=== PATIENT | male | born 1950 | race Asian ===

== ENCOUNTER 2020-12-04 20:23 | Emergency (ER) | payer MEDICARE ==
[2020-12-04 20:32] VITALS: BP 149/68; PULSE 98; TEMP 98.3; BMI 31.4
[2020-12-04] MEDS ORDERED: IBUPROFEN 600 MG TABLET (FP) PO ONE ×2 (22:03→22:05)
[2020-12-04] MEDS ORDERED: LIDOCAINE 5% TOPICAL PATCH TP ONE (22:03)
[2020-12-04] MEDS ORDERED: LIDOCAINE 5% TOPICAL PATCH ONE (22:05)
[2020-12-05] MEDS ORDERED: LIDOCAINE PATCH REMOVAL MC SCH (10:00)
== END 2020-12-05 00:50 | disposition home or self-care (01) ==
LOC: JER 20:23
DX: M79.10 Myalgia, unspecified site (principal)
CPT/HCPCS: 93005; 93010; 99284-25

== ENCOUNTER 2021-01-19 10:15 | Emergency (ER) | payer MEDICARE ==
[2021-01-19 10:22] VITALS: BP 158/83; BMI 32.3
[2021-01-19] MEDS ORDERED: ACETAMINOPHEN INJECTION 100 ML IVPB ONE (10:54)
[2021-01-19] MEDS ORDERED: SODIUM CHLORIDE 0.9% 500 ML INFUS.BAG IV ONE (10:55)
[2021-01-19] MEDS ORDERED: ACETAMINOPHEN 1000 MG/100 ML VIAL (NON FORMULARY) IVPB ONE (10:55)
[2021-01-19 11:25] LABS: BASO % 0.7 % (0-2.0); EOS % 1.4 % (0-4.5); HEMATOCRIT 42.7 % (35.4-49); HEMOGLOBIN 14.2 GM/dL (11.7-16.9); LYMPH % 7.7 % (8-40); MCH 27.5 pg (25.7-33.7); MCHC 33.2 g/dl (32.0-35.9); MEAN CELL VOLUME 82.9 fl (80-96); MEAN PLT VOLUME 8.1 fl (7.5-11.1); MONO % 9.1 % (3.8-10.2); NEUT % 81.1 % (42.8-82.8); PLATELET COUNT 191 K/MM3 (134-434); RBC 5.16 M/mm3 (4.00-5.60); RDW 14.7 % (11.9-15.9); WHITE BLOOD COUNT 5.1 K/mm3 (4.0-10.0)
[2021-01-19 11:40] LABS: POTASSIUM 4.1 mmol/L (3.5-5.1)
[2021-01-19 11:42] LABS: CALCIUM 8.3 mg/dL (8.5-10.1)
[2021-01-19 11:43] LABS: ALBUMIN 3.5 g/dl (3.4-5.0)
[2021-01-19 11:46] LABS: CREATININE 0.9 mg/dL (0.55-1.3)
[2021-01-19 11:47] LABS: BILIRUBIN,TOTAL 0.6 mg/dL (0.2-1); TOT PROT 7.1 g/dl (6.4-8.2)
[2021-01-19 11:52] LABS: BLOOD UREA NITROGEN 8.5 mg/dL (7-18)
[2021-01-19 12:34] VITALS: PULSE 92; TEMP 100
== END 2021-01-19 12:55 | disposition home or self-care (01) ==
LOC: JER 10:15
PROC: 3E033NZ Introduction of Analgesics, Hypnotics, Sedatives into Peripheral Vein, Percutaneous Approach (ICD-10-PCS; principal; 2021-01-19)
DX: M79.10 Myalgia, unspecified site (principal)
CPT/HCPCS: 36415; 80053; 85025; 96374; 99284-25; J0131

== ENCOUNTER 2021-05-05 09:23 | Emergency (ER) | payer MEDICARE ==
[2021-05-05 09:33] VITALS: BP 143/84; PULSE 83; TEMP 97.5; BMI 31.1
[2021-05-05] MEDS ORDERED: KETOROLAC TROMETHAMINE 30 MG/1 ML VIAL IM ONE (09:46)
[2021-05-05] MEDS ORDERED: KETOROLAC TROMETHAMINE 30 MG/1 ML VIAL ONE (09:50)
[2021-05-05 10:30] LABS: URINE APPEARANCE CLEAR; URINE BILIRUBIN NEGATIVE (NEGATIVE); URINE COLOR YELLOW; URINE GLUCOSE (UA) NEGATIVE (NEGATIVE); URINE KETONE NEGATIVE (NEGATIVE); URINE LEUK ESTERASE NEGATIVE (NEGATIVE); URINE NITRITE NEGATIVE (NEGATIVE); URINE PROTEIN NEGATIVE (NEGATIVE); URINE UROBILINOGEN 0.2 mg/dL (0.2-1.0)
== END 2021-05-05 10:50 | disposition home or self-care (01) ==
LOC: JERFT 09:23
PROC: 3E0233Z Introduction of Anti-inflammatory into Muscle, Percutaneous Approach (ICD-10-PCS; principal; 2021-05-05)
DX: M54.5 Low back pain (principal)
CPT/HCPCS: 81003; 87086; 96372; 99284-25

== ENCOUNTER 2021-12-05 03:10 | Inpatient (IN) | payer MEDICARE, OTHER ==
[2021-12-05 03:49] LABS: BASO % 0.4 % (0-2.0); EOS % 1.7 % (0-4.5); HEMATOCRIT 40.9 % (35.4-49); HEMOGLOBIN 13.7 GM/dL (11.7-16.9); LYMPH % 5.8 % (8-40); MCH 27.7 pg (25.7-33.7); MCHC 33.5 g/dl (32.0-35.9); MEAN CELL VOLUME 82.7 fl (80-96); MEAN PLT VOLUME 8.6 fl (7.5-11.1); MONO % 5.2 % (3.8-10.2); NEUT % 86.9 % (42.8-82.8); PLATELET COUNT 174 10^3/uL (134-434); RBC 4.94 M/mm3 (4.00-5.60); VENOUS BASE EXCESS -3.3 mmol/L (-2-2); VENOUS O2 SATURATION 70.9 % (70-80); VENOUS PCO2 33.3 mmHg (38-52); VENOUS PH 7.408 (7.310-7.410)
[2021-12-05 04:00] LABS: INR 1.28 (0.83-1.09); PROTHROMBIN TIME (PATIENT) 14.8 SEC (9.7-13.0)
[2021-12-05 04:03] LABS: ACTIVATED PTT 24.1 SECONDS (25.2-36.5)
[2021-12-05 04:11] LABS: ALBUMIN 3.8 g/dl (3.4-5.0); CALCIUM 8.5 mg/dL (8.5-10.1)
[2021-12-05 04:12] LABS: BLOOD UREA NITROGEN 10.4 mg/dL (7-18)
[2021-12-05 04:14] LABS: CREATININE 1.2 mg/dL (0.55-1.3)
[2021-12-05 04:16] LABS: BILIRUBIN,TOTAL 0.6 mg/dL (0.2-1)
[2021-12-05] MEDS ORDERED: CEFTRIAXONE 1 GM in DEXTROSE 5%-WATER - 50 ML IVPB ONE (04:34)
[2021-12-05] MEDS ORDERED: SODIUM CHLORIDE 0.9% 500 ML INFUS.BAG IV ONE (04:39)
[2021-12-05] MEDS ORDERED: CEFTRIAXONE 1 GM/50 ML BAG ONE (04:40)
[2021-12-05 04:57] LABS: EPI CELLS 1 /uL (0-25.1); HYALINE CASTS 0 /uL (0-3.1); URINE APPEARANCE CLOUDY; URINE BACTERIA 109 /uL (0-1359); URINE BILIRUBIN NEGATIVE (NEGATIVE); URINE COLOR DK YELLOW; URINE GLUCOSE (UA) NEGATIVE (NEGATIVE); URINE KETONE TRACE (NEGATIVE); URINE LEUK ESTERASE 2+ (NEGATIVE); URINE NITRITE NEGATIVE (NEGATIVE); URINE PROTEIN 2+ (NEGATIVE); URINE RBC 523 /uL (0-23.9); URINE UROBILINOGEN 0.2 mg/dL (0.2-1.0); URINE WBC 1256 /uL (0-25.8)
[2021-12-05] MEDS: ACETAMINOPHEN 1000 MG/100 ML BAG IVPB PRN ×2 (11:33→21:00)
[2021-12-05] MEDS ORDERED: MEROPENEM 1 GM VIAL (RESTRICTED TO ID) IVPB ONE (17:50)
[2021-12-05] MEDS: MEROPENEM 1 GM in DEXTROSE 5%-WATER 100 ML IVPB SCH (18:08)
[2021-12-05 18:45] LABS: BASO % 0.2 % (0-2.0); EOS % 0.5 % (0-4.5); HEMATOCRIT 40.3 % (35.4-49); HEMOGLOBIN 13.2 GM/dL (11.7-16.9); LYMPH % 10.1 % (8-40); MCH 26.9 pg (25.7-33.7); MCHC 32.7 g/dl (32.0-35.9); MEAN CELL VOLUME 82.1 fl (80-96); MEAN PLT VOLUME 8.8 fl (7.5-11.1); MONO % 8.4 % (3.8-10.2); NEUT % 80.8 % (42.8-82.8); PLATELET COUNT 187 10^3/uL (134-434); RBC 4.91 M/mm3 (4.00-5.60); RDW 14.9 % (11.9-15.9)
[2021-12-06] MEDS ORDERED: MEROPENEM 1 GM VIAL (RESTRICTED TO ID) IVPB ONE ×3 (02:30→17:12)
[2021-12-06] MEDS ORDERED: DEXTROSE 5%-WATER 100 ML IVPB ONE ×3 (02:31→17:12)
[2021-12-06] MEDS: MEROPENEM 1 GM in DEXTROSE 5%-WATER 100 ML IVPB SCH ×3 (03:00→17:36)
[2021-12-06 08:29] LABS: BASO % 0.4 % (0-2.0); EOS % 0.9 % (0-4.5); HEMATOCRIT 38.5 % (35.4-49); HEMOGLOBIN 12.7 GM/dL (11.7-16.9); LYMPH % 13.8 % (8-40); MCH 27.4 pg (25.7-33.7); MEAN PLT VOLUME 9.2 fl (7.5-11.1); MONO % 11.4 % (3.8-10.2); NEUT % 73.5 % (42.8-82.8); PLATELET COUNT 167 10^3/uL (134-434); RBC 4.64 M/mm3 (4.00-5.60); RDW 15.2 % (11.9-15.9); WHITE BLOOD COUNT 6.9 K/mm3 (4.0-10.0)
[2021-12-06 08:33] LABS: CALCIUM 8.3 mg/dL (8.5-10.1)
[2021-12-06 08:34] LABS: ALBUMIN 3.3 g/dl (3.4-5.0); BLOOD UREA NITROGEN 13.3 mg/dL (7-18)
[2021-12-06 08:39] LABS: BILIRUBIN,TOTAL 0.7 mg/dL (0.2-1); TOT PROT 6.6 g/dl (6.4-8.2)
[2021-12-06 08:42] VITALS: BMI 29.2
[2021-12-07] MEDS ORDERED: DEXTROSE 5%-WATER 100 ML IVPB ONE ×2 (01:06→09:54)
[2021-12-07] MEDS ORDERED: MEROPENEM 1 GM VIAL (RESTRICTED TO ID) IVPB ONE ×2 (01:06→09:54)
[2021-12-07] MEDS: MEROPENEM 1 GM in DEXTROSE 5%-WATER 100 ML IVPB SCH ×2 (01:18→10:08)
[2021-12-07] MEDS ORDERED: ERTAPENEM SODIUM 1 GM VIAL ONE (16:27)
[2021-12-07] MEDS ORDERED: SODIUM CHLORIDE 50 ML IVPB ONE (16:27)
[2021-12-07] MEDS: ERTAPENEM SODIUM 1 GM in SODIUM CHLORIDE 50 ML IVPB SCH (16:34)
[2021-12-08] MEDS ORDERED: ERTAPENEM SODIUM 1 GM VIAL ONE (09:43)
[2021-12-08] MEDS ORDERED: SODIUM CHLORIDE 50 ML IVPB ONE (09:44)
[2021-12-08] MEDS: ERTAPENEM SODIUM 1 GM in SODIUM CHLORIDE 50 ML IVPB SCH (09:46)
[2021-12-08] MEDS ORDERED: MAG HYDROX/AL HYDROX/SIMETH 30 ML UNIT-DOSE CUP PO PRN (15:32)
[2021-12-08] MEDS: PANTOPRAZOLE 40 MG TABLET PO SCH (16:00)
[2021-12-08] MEDS ORDERED: TAMSULOSIN HCL 0.4 MG CAP PO ONE (17:53)
[2021-12-08] MEDS ORDERED: amLODIPine BESYLATE 5 MG TABLET (FP) PO ONE (17:53)
[2021-12-09] MEDS ORDERED: ERTAPENEM SODIUM 1 GM VIAL ONE (09:43)
[2021-12-09] MEDS ORDERED: SODIUM CHLORIDE 50 ML IVPB ONE (09:44)
[2021-12-09] MEDS: amLODIPine BESYLATE 5 MG TABLET (FP) PO SCH (09:49)
[2021-12-09] MEDS: ERTAPENEM SODIUM 1 GM in SODIUM CHLORIDE 50 ML IVPB SCH (09:49)
[2021-12-09] MEDS: PANTOPRAZOLE 40 MG TABLET PO SCH (09:49)
[2021-12-09] MEDS: TAMSULOSIN HCL 0.4 MG CAP PO SCH (09:49)
[2021-12-09] MEDS: ACETAMINOPHEN 325 MG TABLET (FP) PO PRN (13:23)
[2021-12-10] MEDS: ACETAMINOPHEN 325 MG TABLET (FP) PO PRN (03:07)
[2021-12-10] MEDS ORDERED: ERTAPENEM SODIUM 1 GM VIAL ONE (08:52)
[2021-12-10] MEDS ORDERED: SODIUM CHLORIDE 50 ML IVPB ONE (08:52)
[2021-12-10] MEDS: amLODIPine BESYLATE 5 MG TABLET (FP) PO SCH (09:32)
[2021-12-10] MEDS: ERTAPENEM SODIUM 1 GM in SODIUM CHLORIDE 50 ML IVPB SCH (09:32)
[2021-12-10] MEDS: PANTOPRAZOLE 40 MG TABLET PO SCH (09:32)
[2021-12-10] MEDS: TAMSULOSIN HCL 0.4 MG CAP PO SCH (09:32)
[2021-12-10 10:19] VITALS: BP 138/75; PULSE 84; TEMP 98.5
== END 2021-12-10 19:01 | disposition home or self-care (01) | DRG 699 ==
LOC: JER 03:10 → JERBED 06:09 → J7W 22:24
PROVIDERS: ADMIT Internal Medicine; ATTEND Family Medicine
PROC: 05HB33Z Insertion of Infusion Device into Right Basilic Vein, Percutaneous Approach (ICD-10-PCS; principal; 2021-12-10)
PROC: B51MZZA Fluoroscopy of Right Upper Extremity Veins, Guidance (ICD-10-PCS; 2021-12-10)
DX: N99.89 Other postprocedural complications and disorders of genitourinary system (principal); N39.0 Urinary tract infection, site not specified; Z16.12 Extended spectrum beta lactamase (ESBL) resistance; N41.9 Inflammatory disease of prostate, unspecified; R50.9 Fever, unspecified; B96.20 Unspecified Escherichia coli [E. coli] as the cause of diseases classified elsewhere; I10 Essential (primary) hypertension; K21.9 Gastro-esophageal reflux disease without esophagitis; Y83.9 Surgical procedure, unspecified as the cause of abnormal reaction of the patient, or of later complication, without mention of misadventure at the time of the procedure
CPT/HCPCS: 36415; 36569; 71045-TC-FY; 74177-TC; 80053; 81003; 82272; 82375; 82550; 82553; 82803; 83605; 84153; 84484; 85025; 85610; 85730; 86850; 86900; 86901; 87040; 87086; 87186; 93005; 93010; 99285-25; C9803; J0131; U0003; U0005

== ENCOUNTER 2021-12-11 12:22 | Day surgery (SDC) | payer OTHER ==
[2021-12-11] MEDS ORDERED: ERTAPENEM SODIUM 1 GM in SODIUM CHLORIDE 50 ML IVPB ONE (12:45)
[2021-12-11] MEDS ORDERED: SODIUM CHLORIDE 50 ML IVPB ONE (12:47)
[2021-12-11] MEDS ORDERED: ERTAPENEM SODIUM 1 GM VIAL ONE (12:47)
[2021-12-11 13:07] VITALS: BP 141/73; PULSE 83; TEMP 99
== END 2021-12-11 13:50 | disposition home or self-care (01) ==
LOC: JINFUSION 12:22 → J7W 12:40 → JINFUSION 13:50
PROVIDERS: ATTEND Internal Medicine
DX: N39.0 Urinary tract infection, site not specified (principal); B96.20 Unspecified Escherichia coli [E. coli] as the cause of diseases classified elsewhere
CPT/HCPCS: 96413

== ENCOUNTER 2022-05-02 14:39 | Emergency (ER) | payer OTHER ==
[2022-05-02 14:53] VITALS: BP 138/70; PULSE 79; TEMP 98.5; BMI 28.8
[2022-05-02] MEDS ORDERED: SODIUM CHLORIDE 1,000 ML IV STA (15:47)
[2022-05-02] MEDS ORDERED: ACETAMINOPHEN 1000 MG/100 ML BAG IVPB ONE (15:48)
[2022-05-02] MEDS ORDERED: ACETAMINOPHEN INJECTION 100 ML IVPB ONE (15:59)
[2022-05-02 17:35] LABS: BASO % 0.6 % (0-2.0); EOS % 2.8 % (0-4.5); HEMATOCRIT 42.1 % (35.4-49); HEMOGLOBIN 14.1 GM/dL (11.7-16.9); LYMPH % 22.4 % (8-40); MCH 27.8 pg (25.7-33.7); MCHC 33.5 g/dl (32.0-35.9); MEAN PLT VOLUME 9.4 fl (7.5-11.1); MONO % 8.2 % (3.8-10.2); PLATELET COUNT 278 10^3/uL (134-434); RBC 5.08 M/mm3 (4.00-5.60); RDW 14.6 % (11.9-15.9); WHITE BLOOD COUNT 6.3 K/mm3 (4.0-10.0)
[2022-05-02 17:44] LABS: URINE APPEARANCE CLEAR; URINE BILIRUBIN NEGATIVE (NEGATIVE); URINE COLOR YELLOW; URINE GLUCOSE (UA) NEGATIVE (NEGATIVE); URINE KETONE NEGATIVE (NEGATIVE); URINE LEUK ESTERASE NEGATIVE (NEGATIVE); URINE NITRITE NEGATIVE (NEGATIVE); URINE PROTEIN NEGATIVE (NEGATIVE); URINE UROBILINOGEN 0.2 mg/dL (0.2-1.0)
[2022-05-02 17:52] LABS: BLOOD UREA NITROGEN 9.6 mg/dL (7-18); CALCIUM 9.6 mg/dL (8.5-10.1)
[2022-05-02 17:55] LABS: CREATININE 0.9 mg/dL (0.55-1.3)
[2022-05-02 17:58] LABS: BILIRUBIN,TOTAL 0.4 mg/dL (0.2-1); TOT PROT 7.7 g/dl (6.4-8.2)
== END 2022-05-02 18:52 | disposition home or self-care (01) ==
LOC: JERFT 14:39
PROC: 3E0333Z Introduction of Anti-inflammatory into Peripheral Vein, Percutaneous Approach (ICD-10-PCS; principal; 2022-05-02)
PROC: 3E0337Z Introduction of Electrolytic and Water Balance Substance into Peripheral Vein, Percutaneous Approach (ICD-10-PCS; 2022-05-02)
DX: R10.9 Unspecified abdominal pain (principal)
CPT/HCPCS: 36415; 74176-TC; 80053; 81003; 85025; 96361; 96374; 99284-25

== ENCOUNTER 2022-11-16 19:19 | Emergency (ER) | payer OTHER ==
[2022-11-16 19:42] VITALS: BP 139/67; PULSE 87; RESP 18; TEMP 99.4; BMI 30.4
[2022-11-16 21:16] LABS: BASO % 0.5 % (0-2.0); EOS % 3.6 % (0-4.5); HEMATOCRIT 42.1 % (35.4-49); LYMPH % 11.6 % (8-40); MCH 27.7 pg (25.7-33.7); MCHC 33.2 g/dl (32.0-35.9); MEAN CELL VOLUME 83.5 fl (80-96); MEAN PLT VOLUME 8.8 fl (7.5-11.1); MONO % 8.5 % (3.8-10.2); NEUT % 75.8 % (42.8-82.8); PLATELET COUNT 212 10^3/uL (134-434); RBC 5.04 M/mm3 (4.00-5.60); RDW 14.4 % (11.9-15.9); WHITE BLOOD COUNT 5.4 K/mm3 (4.0-10.0)
[2022-11-16 21:52] LABS: CALCIUM 9.1 mg/dL (8.5-10.1)
[2022-11-16 21:53] LABS: BLOOD UREA NITROGEN 7.8 mg/dL (7-18)
[2022-11-16 21:55] LABS: CREATININE 1.1 mg/dL (0.55-1.3)
[2022-11-16 21:57] LABS: BILIRUBIN,TOTAL 0.4 mg/dL (0.2-1); TOT PROT 7.4 g/dl (6.4-8.2)
== END 2022-11-16 23:32 | disposition home or self-care (01) ==
LOC: JER 19:19
DX: R05.1 Acute cough (principal)
CPT/HCPCS: 0241U-QW; 36415; 71046-TC-FY; 80053; 84484; 85025; 93005; 93010; 99285-25

== ENCOUNTER 2023-01-25 04:37 | Emergency (ER) | payer OTHER ==
[2023-01-25 04:43] VITALS: BP 147/82; PULSE 72; RESP 17; TEMP 97.9; BMI 29.6
[2023-01-25] MEDS ORDERED: KETOROLAC TROMETHAMINE 15 MG/ML VIAL IM ONE (05:37)
[2023-01-25] MEDS ORDERED: LIDOCAINE 5% TOPICAL PATCH TP ONE (05:37)
[2023-01-25] MEDS ORDERED: KETOROLAC TROMETHAMINE 15 MG/ML VIAL ONE (05:39)
[2023-01-25] MEDS ORDERED: LIDOCAINE 5% TOPICAL PATCH ONE (05:39)
[2023-01-25] MEDS ORDERED: LIDOCAINE PATCH REMOVAL MC SCH (22:00)
== END 2023-01-25 06:49 | disposition home or self-care (01) ==
LOC: JER 04:37
PROC: 3E0233Z Introduction of Anti-inflammatory into Muscle, Percutaneous Approach (ICD-10-PCS; principal; 2023-01-25)
DX: M54.2 Cervicalgia (principal)
CPT/HCPCS: 96372; 99284-25

== ENCOUNTER 2023-01-26 09:43 | Emergency (ER) | payer OTHER ==
[2023-01-26 09:46] VITALS: BP 143/80; PULSE 84; RESP 18; TEMP 97; BMI 28.8
[2023-01-26] MEDS ORDERED: LIDOCAINE 5% TOPICAL PATCH TP ONE (11:29)
[2023-01-26] MEDS ORDERED: METHOCARBAMOL 500 MG TABLET PO ONE (11:29)
[2023-01-26] MEDS ORDERED: KETOROLAC TROMETHAMINE 30 MG/1 ML VIAL IM ONE (11:29)
[2023-01-26] MEDS ORDERED: KETOROLAC TROMETHAMINE 30 MG/1 ML VIAL ONE (11:32)
[2023-01-26] MEDS ORDERED: LIDOCAINE 5% TOPICAL PATCH ONE (11:32)
[2023-01-26] MEDS ORDERED: METHOCARBAMOL 500 MG TABLET ONE (11:32)
[2023-01-26] MEDS ORDERED: LIDOCAINE PATCH REMOVAL MC ONE (22:00)
== END 2023-01-26 12:33 | disposition home or self-care (01) ==
LOC: JERFT 09:43 → JER 09:43 → JERFT 12:33
PROC: 3E0233Z Introduction of Anti-inflammatory into Muscle, Percutaneous Approach (ICD-10-PCS; principal; 2023-01-26)
DX: S16.1XXA Strain of muscle, fascia and tendon at neck level, initial encounter (principal); M54.2 Cervicalgia; X58.XXXA Exposure to other specified factors, initial encounter
CPT/HCPCS: 96372; 99284-25

== ENCOUNTER 2023-06-08 22:22 | Observation (INO) | payer OTHER ==
[2023-06-08] MEDS ORDERED: MAG HYDROX/AL HYDROX/SIMETH 30 ML UNIT-DOSE CUP PO ONE (22:46)
[2023-06-08] MEDS ORDERED: FAMOTIDINE 20 MG/50 ML IVPB 20 MG/50 ML MG IVPB ONE ×2 (22:46→23:09)
[2023-06-08] MEDS ORDERED: MAG HYDROX/AL HYDROX/SIMETH 30 ML UNIT-DOSE CUP ONE (23:09)
[2023-06-08 23:12] LABS: BASO % 0.6 % (0-2.0); EOS % 3.4 % (0-4.5); HEMATOCRIT 37.1 % (35.4-49); HEMOGLOBIN 12.8 GM/dL (11.7-16.9); LYMPH % 23.7 % (8-40); MCH 28.4 pg (25.7-33.7); MCHC 34.4 g/dl (32.0-35.9); MEAN CELL VOLUME 82.6 fl (80-96); MEAN PLT VOLUME 8.1 fl (7.5-11.1); MONO % 6.7 % (3.8-10.2); NEUT % 65.6 % (42.8-82.8); PLATELET COUNT 215 10^3/uL (134-434); RBC 4.49 M/mm3 (4.00-5.60); RDW 14.4 % (11.9-15.9); WHITE BLOOD COUNT 6.1 K/mm3 (4.0-10.0)
[2023-06-08 23:31] LABS: POTASSIUM 4.1 mmol/L (3.5-5.1)
[2023-06-08 23:32] LABS: CALCIUM 8.9 mg/dL (8.5-10.1)
[2023-06-08 23:33] LABS: ALBUMIN 3.4 g/dl (3.4-5.0); BLOOD UREA NITROGEN 14.3 mg/dL (7-18)
[2023-06-08 23:36] LABS: CREATININE 0.8 mg/dL (0.55-1.3)
[2023-06-08 23:38] LABS: BILIRUBIN,TOTAL 0.3 mg/dL (0.2-1); TOT PROT 6.7 g/dl (6.4-8.2)
[2023-06-09 00:52] LABS: PH,URINE 6.5 (5.0-8.0); URINE APPEARANCE CLEAR; URINE BILIRUBIN NEGATIVE (NEGATIVE); URINE COLOR YELLOW; URINE GLUCOSE (UA) NEGATIVE (NEGATIVE); URINE KETONE NEGATIVE (NEGATIVE); URINE LEUK ESTERASE NEGATIVE (NEGATIVE); URINE NITRITE NEGATIVE (NEGATIVE); URINE PROTEIN NEGATIVE (NEGATIVE); URINE UROBILINOGEN 0.2 mg/dL (0.2-1.0)
[2023-06-09] MEDS ORDERED: ASPIRIN 81 MG CHEWABLE TABLETS PO ONE (01:53)
[2023-06-09] MEDS ORDERED: ASPIRIN 81 MG CHEWABLE TABLETS ONE (02:04)
[2023-06-09] MEDS ORDERED: ACETAMINOPHEN 325 MG TABLET (FP) PO PRN (02:31)
[2023-06-09] MEDS ORDERED: SIMETHICONE 80 MG TAB.CHEW (FP) PO PRN (05:14)
[2023-06-09] MEDS ORDERED: TAMSULOSIN HCL 0.4 MG CAP PO SCH (08:30)
[2023-06-09] MEDS ORDERED: amLODIPine BESYLATE 5 MG TABLET (FP) ONE (08:42)
[2023-06-09] MEDS ORDERED: PANTOPRAZOLE 40 MG TABLET PO ONE (08:42)
[2023-06-09] MEDS ORDERED: TAMSULOSIN HCL 0.4 MG CAP ONE (08:43)
[2023-06-09 08:49] LABS: BASO % 0.7 % (0-2.0); EOS % 4.5 % (0-4.5); HEMATOCRIT 37.4 % (35.4-49); HEMOGLOBIN 13.2 GM/dL (11.7-16.9); LYMPH % 27.1 % (8-40); MCH 28.9 pg (25.7-33.7); MCHC 35.3 g/dl (32.0-35.9); MEAN PLT VOLUME 8.3 fl (7.5-11.1); NEUT % 59.7 % (42.8-82.8); PLATELET COUNT 199 10^3/uL (134-434); RBC 4.56 M/mm3 (4.00-5.60); RDW 14.7 % (11.9-15.9); WHITE BLOOD COUNT 3.8 K/mm3 (4.0-10.0)
[2023-06-09 08:56] LABS: POTASSIUM 4.3 mmol/L (3.5-5.1)
[2023-06-09 08:58] LABS: CALCIUM 8.6 mg/dL (8.5-10.1)
[2023-06-09 09:00] LABS: ALBUMIN 3.3 g/dl (3.4-5.0)
[2023-06-09 09:02] LABS: CREATININE 0.7 mg/dL (0.55-1.3)
[2023-06-09 09:03] LABS: TOT PROT 6.6 g/dl (6.4-8.2)
[2023-06-09 09:05] LABS: BILIRUBIN,TOTAL 0.3 mg/dL (0.2-1)
[2023-06-09] MEDS ORDERED: amLODIPine BESYLATE 5 MG TABLET (FP) PO SCH (10:00)
[2023-06-09] MEDS ORDERED: PANTOPRAZOLE 40 MG TABLET PO SCH (10:00)
[2023-06-09 11:42] VITALS: BP 142/68; PULSE 59; RESP 18; TEMP 97.4; BMI 24.9
[2023-06-10] MEDS ORDERED: ASPIRIN 81 MG CHEWABLE TABLETS PO SCH (10:00)
== END 2023-06-09 14:20 | disposition home or self-care (01) ==
LOC: JER 22:22 → JERBED 06-09 02:00 → J4S 06-09 10:52
PROVIDERS: ADMIT Internal Medicine; ATTEND Family Medicine
PROC: 3E033GC Introduction of Other Therapeutic Substance into Peripheral Vein, Percutaneous Approach (ICD-10-PCS; principal; 2023-06-09)
DX: I10 Essential (primary) hypertension (principal); N40.0 Benign prostatic hyperplasia without lower urinary tract symptoms; M54.9 Dorsalgia, unspecified; K21.9 Gastro-esophageal reflux disease without esophagitis; R07.9 Chest pain, unspecified
CPT/HCPCS: 36415; 71045-TC-FY; 80053; 80061; 81003; 83735; 84484; 85025; 87086; 93005; 93010; 93351; 96365; 99285-25; G0378

== ENCOUNTER 2023-07-14 16:48 | Emergency (ER) | payer OTHER ==
[2023-07-14 17:09] VITALS: BP 125/67; PULSE 71; RESP 17; TEMP 98.8; BMI 26.8
[2023-07-14 19:03] LABS: BASO % 0.5 % (0-2.0); EOS % 1.9 % (0-4.5); HEMATOCRIT 37.6 % (35.4-49); HEMOGLOBIN 12.8 GM/dL (11.7-16.9); LYMPH % 22.4 % (8-40); MCH 28.3 pg (25.7-33.7); MEAN CELL VOLUME 83.1 fl (80-96); MEAN PLT VOLUME 8.4 fl (7.5-11.1); MONO % 7.5 % (3.8-10.2); NEUT % 67.7 % (42.8-82.8); PLATELET COUNT 219 10^3/uL (134-434); RBC 4.52 M/mm3 (4.00-5.60); WHITE BLOOD COUNT 6.7 K/mm3 (4.0-10.0)
[2023-07-14 19:24] LABS: POTASSIUM 3.9 mmol/L (3.5-5.1)
[2023-07-14 19:27] LABS: ALBUMIN 3.6 g/dl (3.4-5.0); BLOOD UREA NITROGEN 10.5 mg/dL (7-18); CALCIUM 8.9 mg/dL (8.5-10.1)
[2023-07-14 19:30] LABS: CREATININE 1.1 mg/dL (0.55-1.3); URIC ACID 4.5 mg/dL (2.6-7.2)
[2023-07-14 19:32] LABS: BILIRUBIN,TOTAL 0.4 mg/dL (0.2-1); TOT PROT 6.9 g/dl (6.4-8.2)
[2023-07-14 19:45] LABS: ERYTHROCYTE SEDIMENTATION RATE 25 mm/hr (0-20)
[2023-07-14] MEDS ORDERED: predniSONE 20 MG TABLET (UD) PO ONE ×2 (20:10→20:13)
[2023-07-14] MEDS ORDERED: predniSONE 20 MG TABLET (UD) ONE (20:14)
== END 2023-07-14 21:03 | disposition home or self-care (01) ==
LOC: JERFT 16:48
DX: M10.9 Gout, unspecified (principal); M79.89 Other specified soft tissue disorders
CPT/HCPCS: 36415; 73110-TC-RT-FY; 80053; 84550; 85025; 85651; 86140; 99284-25

== ENCOUNTER 2023-08-24 23:07 | Emergency (ER) | payer OTHER ==
[2023-08-24 23:17] VITALS: BP 140/69; PULSE 80; RESP 18; TEMP 98.4; BMI 26.9
[2023-08-25] MEDS ORDERED: KETOROLAC TROMETHAMINE 30 MG/1 ML VIAL IM ONE (00:07)
[2023-08-25] MEDS ORDERED: KETOROLAC TROMETHAMINE 30 MG/1 ML VIAL ONE (00:09)
== END 2023-08-25 02:19 | disposition home or self-care (01) ==
LOC: JER 23:07
PROC: 3E0233Z Introduction of Anti-inflammatory into Muscle, Percutaneous Approach (ICD-10-PCS; principal; 2023-08-25)
DX: M79.675 Pain in left toe(s) (principal); R22.42 Localized swelling, mass and lump, left lower limb; L53.9 Erythematous condition, unspecified
CPT/HCPCS: 73630-TC-LT; 99284-25

== ENCOUNTER 2025-02-11 00:54 | Emergency (ER) | payer OTHER ==
[2025-02-11 00:59] VITALS: BP 174/109; PULSE 92; RESP 20; TEMP 98.2; BMI 29.9
[2025-02-11] MEDS: KETOROLAC TROMETHAMINE 30 MG/1 ML VIAL IVPUSH ONE (01:35)
[2025-02-11] MEDS ORDERED: CycloBENZAprine HCL 10 MG TABLET (FP) ONE (01:36)
[2025-02-11] MEDS ORDERED: KETOROLAC TROMETHAMINE 30 MG/1 ML VIAL ONE (01:37)
[2025-02-11] MEDS: CycloBENZAprine HCL 10 MG TABLET (FP) PO ONE (01:40)
[2025-02-11] MEDS: KETOROLAC TROMETHAMINE 30 MG/1 ML VIAL IM ONE (01:40)
== END 2025-02-11 02:51 | disposition home or self-care (01) ==
LOC: JER 00:54
PROC: 3E0233Z Introduction of Anti-inflammatory into Muscle, Percutaneous Approach (ICD-10-PCS; principal; 2025-02-11)
DX: M54.2 Cervicalgia (principal)
CPT/HCPCS: 99284-25